=== PATIENT | male | born 1975 | race Caucasian/White ===

== ENCOUNTER → 2024-12-22 | Outpatient (CLI) | payer BC, SELFPAY ==
[2024-12-22 12:40] LABS: Alanine Aminotransferase 24 U/L (10-49); Alkaline Phosphatase 68 U/L (46-116); Anion Gap 17 (7-16); Aspartate Amino Transferase 18 U/L (0-34); BUN/Creatinine Ratio 14 Ratio (12-20); Bilirubin,Total 0.6 mg/dL (0.3-1.2); Blood Urea Nitrogen 14 mg/dL (9-23); Calcium 9.5 mg/dL (8.3-10.6); Calcium (Corrected) 9.5 mg/dL (8.5-10.1); Carbon Dioxide 23.9 mMol/L (20.0-31.0); Chloride 101 mMol/L (98-107); Free T4 (Free Thyroxine) 1.38 ng/dL (0.89-1.76); Globulin 2.5 gm/dL (2.3-3.5); Glucose 142 mg/dL (74-106); HDL Cholesterol 45 mg/dL (40-60); Osmolality,Calculated 285 (275-295); Potassium 3.1 mMol/L (3.4-5.1); Sodium 142 mMol/L (136-145); Thyroid Stimulating Hormone 1.62 uIU/mL (0.55-4.78); Total Protein 7.5 gm/dL (5.7-8.2); Triglycerides 225 mg/dL (30-150); eGFR > 60 See Note
[2024-12-22 12:42] LABS: Cardiac Risk Estimate 4.9 RATIO (4.0-6.7); Cholesterol 219 mg/dL (132-200); LDL Cholesterol,Calculated 129 mg/dL (0-130)
== END | disposition home or self-care (01) ==
PROVIDERS: PCP Family Medicine; Referring Provider Family Medicine; Visit Provider Family Medicine
DX: E78.1 Pure hyperglyceridemia (principal); E03.2 Hypothyroidism due to medicaments and other exogenous substances; E34.9 Endocrine disorder, unspecified; Z13.1 Encounter for screening for diabetes mellitus
CPT/HCPCS: 36415; 80053; 80061; 84403; 84439; 84443

== ENCOUNTER → 2024-12-31 | Outpatient (CLI) | payer BC, SELFPAY ==
[2024-12-31 09:41] LABS: Glucose Estimated Average 131 mg/dL (80-131); Hemoglobin A1C 6.2 % Hgb (4.8-6.0)
== END | disposition home or self-care (01) ==
LOC: COPL 07:53
PROVIDERS: PCP Family Medicine; Referring Provider Family Medicine; Visit Provider Family Medicine
DX: E11.65 Type 2 diabetes mellitus with hyperglycemia (principal)
CPT/HCPCS: 36415; 83036